=== PATIENT | female | born 1945 | race Caucasian/White ===

== ENCOUNTER 2016-12-24 13:53 | Emergency (ER) | payer BC, OTHER ==
[~2016-12-24] VITALS: Ht 165.1 cm; Wt 95.4 kg
[~2016-12-24 13:53] MED LIST: TYLENOL REGULA325 MG PO
[2016-12-24] MEDS ORDERED: MELOXICAM15 MG PO (14:39)
[2016-12-24] MEDS ORDERED: METOPROLOL SUCC25 MG PO (14:39)
[2016-12-24] MEDS ORDERED: ELIQUIS5 MG PO (14:39)
[2016-12-24] MEDS ORDERED: LASIX40 MG PO (14:39)
[2016-12-24] MEDS ORDERED: PERCOCET 5/31 TABLET PO (15:39)
[2016-12-24 16:07] VITALS: BP 105/68
== END 2016-12-24 16:08 | disposition home or self-care (01) ==
LOC: EME 13:53
DX: S92.411A Displaced fracture of proximal phalanx of right great toe, initial encounter for closed fracture (principal); W18.09XA Striking against other object with subsequent fall, initial encounter; Y92.009 Unspecified place in unspecified non-institutional (private) residence as the place of occurrence of the external cause; Z79.01 Long term (current) use of anticoagulants
CPT/HCPCS: 73660; 99281; 99283